=== PATIENT | female | born 1995 | race Caucasian/White ===

== ENCOUNTER 2018-10-24 19:24 | Emergency (ER) | payer OTHER, SELFPAY ==
[2018-10-24 19:25] VITALS: BP 130/72; PULSE 98; RESP 20; TEMP 36.7; O2SAT 98; BMI 30.4
--- NOTE | 2018-10-24 19:35 | DI.RAD.S_ITS ---
PROCEDURE: XR ANKLE LT MIN 3V INDICATIONS: turned left ankle, pain and swelling TECHNIQUE: 3 views of the ankle were acquired. COMPARISON: None. FINDINGS: Bones: No fractures or dislocations. Ankle mortise is normally aligned. No suspicious bony lesions. Soft tissues: No tibiotalar joint effusion. Achilles tendon appears normal. IMPRESSION: No acute osseous abnormality of the left ankle. Dictated by: Ishan Fry M.D. on 10/24/2018 at 19:52 Approved by: Ishan Fry M.D. on 10/24/2018 at 19:53
--- NOTE | 2018-10-24 20:08 | ED.LOWEXIN ---
HPI - Extremity Injury (Lower) <Ilana Reis PA-C - Last Filed: 10/24/18 21:27> General Chief Complaint: Extremity Injury, Lower Stated Complaint: rolled left ankle Time Seen by Provider: 10/24/18 19:38 Source: patient Mode of arrival: ambulatory Limitations: no limitations History of Present Illness HPI Narrative: This 23-year-old female was walking on flat ground when she rolled her left ankle inward. She states this was quite painful and she had to sit down for minute due to pain. She states afterwards she was able to ambulate a little bit but had to walk on her tiptoes secondary to pain. She denies any other injury, notes that she had previous stress fractures in the left foot but not having pain there. She denies any possibility of . Has not taken any pain medication Related Data Allergies Allergy/AdvReac Type Severity Reaction Status Date / Time No Known Drug Allergies Allergy Verified 10/24/18 19:34 Review of Systems <Ilana Reis PA-C - Last Filed: 10/24/18 21:27> Review of Systems ROS Unobtainable: All systems reviewed & are unremarkable except as noted in HPI and below PFSH <Ilana Reis PA-C - Last Filed: 10/24/18 21:27> Medical History (Updated 10/24/18 @ 20:34 by Ilana Reis PA-C) Chronic back pain (Chronic) Surgical History (Updated 10/24/18 @ 20:34 by Ilana Reis PA-C) Status post advanced surface ablation photorefractive keratectomy (PRK) (Resolved) Status post wisdom tooth extraction (Resolved) Social History Smoking Status: Current every day smoker Social History Smoking Status: Current every day smoker Exam <Ilana Reis PA-C - Last Filed: 10/24/18 21:27> Narrative Exam Narrative: GENERAL APPEARANCE: Patient sitting comfortably, in no distress. LUNGS: Clear to auscultation bilaterally. HEART: Rate and rhythm regular without murmur, normal S1 and S2, no S3 or S4. MUSCULOSKELETAL: Left ankle trace effusion. Achilles is intact by palpation. Tender just inferior and anterior to the lateral malleolus. No tenderness elsewhere over the ankle, no point tenderness over the metatarsals or foot. Full range of motion of the ankle but tender with inversion. There is no obvious laxity. Able to dorsiflex and plantar flex the toes with full strength against resistance. Initial Vital Signs Initial Vital Signs: Vital Signs Temperature 98.0 F 10/24/18 19:25 Pulse Rate 98 H 10/24/18 19:25 Respiratory Rate 20 10/24/18 19:25 Blood Pressure 130/72 10/24/18 19:25 Pulse Oximetry 98 10/24/18 19:25 <Suri Naranjo DO - Last Filed: 10/24/18 22:41> Initial Vital Signs Initial Vital Signs: Vital Signs Temperature 98.0 F 10/24/18 19:25 Pulse Rate 98 H 10/24/18 19:25 Respiratory Rate 20 10/24/18 19:25 Blood Pressure 130/72 10/24/18 19:25 Pulse Oximetry 98 10/24/18 19:25 Course <Ilana Reis PA-C - Last Filed: 10/24/18 21:27> Orders Ordered: ED Orders 10/24/18 19:35 XR ankle LT min 3V Stat Discontinued Medications Ibuprofen (Advil) 800 mg PO NOW ONE Stop: 10/24/18 20:23 Last Admin: 10/24/18 20:38 Dose: 800 mg Ondansetron HCl (Zofran Odt Prepack) 1 bottle MISC SEEINSTR ONE Stop: 10/24/18 20:27 Vital Signs - 8 hr 10/24/18 19:25 10/24/18 21:02 Temperature 98.0 F Pulse Rate 98 H 84 Respiratory Rate 20 16 Blood Pressure 130/72 126/73 Pulse Oximetry 98 100 <Suri Naranjo DO - Last Filed: 10/24/18 22:41> Orders Ordered: ED Orders 10/24/18 19:35 XR ankle LT min 3V Stat Discontinued Medications Ibuprofen (Advil) 800 mg PO NOW ONE Stop: 10/24/18 20:23 Last Admin: 10/24/18 20:38 Dose: 800 mg Ondansetron HCl (Zofran Odt Prepack) 1 bottle MISC SEEINSTR ONE Stop: 10/24/18 20:27 Vital Signs - 8 hr 10/24/18 19:25 10/24/18 21:02 Temperature 98.0 F Pulse Rate 98 H 84 Respiratory Rate 20 16 Blood Pressure 130/72 126/73 Pulse Oximetry 98 100 Discharge Plan Departure Patient Disposition: Home Clinical Impression: Ankle sprain and strain Discharge Date/Time: 10/24/18 21:04 Interventions: ED Discharge Assessment Last Done: 10/24/18 21:02 Instructions: DI for Ankle Sprain Activity Restrictions/Additional Instructions: Wear the ankle support splint whenever you are bearing weight, and use the crutches as needed for now. As you start to feel better, you can walk gently on flat ground without the crutches. Please take ibuprofen 800 mg every 8 hours to help with pain and swelling and you can add Tylenol in addition to this as needed. Please follow-up with your PCP in a week. As we talked about, you may need repeat x-rays or further evaluation if you are not improving by then (I have given you a copy of your x-ray on disc in case needed for comparison). Please return to the ED if you have any acutely worsening symptoms in the interim Referrals: Rupesh Sherman MD [Non-Staff] - <Suri Naranjo DO - Last Filed: 10/24/18 22:41> Cosign ED Attending Amadaature Attestation: I was immediately available in the department for consultation. Documentation has been reviewed. I agree with assessment and plan.
[2018-10-24] MEDS: IBUPROFEN 400 MG TABLET 800 MG PO (20:38)
[2018-10-24 21:02] VITALS: BP 126/73; PULSE 84; RESP 16; O2SAT 100
== END 2018-10-24 21:04 | disposition home or self-care (01) ==
PROVIDERS: Emergency Provider Internal Medicine
DX: S93.402A Sprain of unspecified ligament of left ankle, initial encounter (principal)
CPT/HCPCS: 73610; 99282; 99283